=== PATIENT | female | born 1980 | race Caucasian/White ===

== ENCOUNTER 2018-03-17 09:56 | Emergency (ER) | payer BC ==
[2018-03-17 11:47] VITALS: BP 184/102
--- NOTE | 2018-03-17 12:18 | ED ---
Throat Pain/Nasal Congestion - HPI Summary HPI Summary: pt presents to the ED for evaluation of her eye discharge. she states that she has been ill for a week with congestion, body aches and a slight sore throat. she states she is feeling better, however, she started to have discharge from her eyes over the past 1-2 days. she states she had to wipe her eyes twice last night due to the ocular discharge. She denies any pain or change in vision. - History of Current Complaint Chief Complaint: UCEye Hx Obtained From: Patient Onset/Duration: Lasting Days, Still Present Severity: Mild Associated Signs And Symptoms: Negative: Dysphagia, Wheezing, Sinus Discomfort, Nasal Discharge - Allergies/Home Medications Allergies/Adverse Reactions: Allergies Allergy/AdvReac Type Severity Reaction Status Date / Time Gaine detergent Allergy Intermediate Rash And Uncoded 03/19/16 12:33 Itching wool Allergy Intermediate Rash And Uncoded 03/19/16 12:33 Itching Home Medications: Home Medications Mv-Min/Vit C/Glut/Lysine/Hb124 [Airborne Effervescent Tablet] 1 each PO TID [History Confirmed 03/17/18] PMH/Surg Hx/FS Hx/Imm Hx Previously Healthy: Yes Endocrine/Hematology History: Denies: Hx Diabetes, Hx Thyroid Disease Cardiovascular History: Reports: Hx Hypertension Respiratory History: Denies: Hx Asthma, Hx Chronic Obstructive Pulmonary Disease (COPD) GI History: Denies: Hx Ulcer - Surgical History Surgery Procedure, Year, and Place: [facility] 2000. LASIX Infectious Disease History: No Infectious Disease History: Denies: Hx Clostridium Difficile, Hx Hepatitis, Hx Human Immunodeficiency Virus (HIV), Hx of Known/Suspected MRSA, Hx Shingles, Hx Tuberculosis, Hx Known/ Suspected VRE, Hx Known/Suspected VRSA, History Other Infectious Disease, Traveled Outside the [place] in Last 30 Days - Family History Known Family History: Positive: Cardiac Disease - Social History Alcohol Use: None Substance Use Type: Reports: None Smoking Status (MU): Never Smoked Tobacco Review of Systems Constitutional: Negative Negative: Fever, Chills Positive: Drainage, Erythema. Negative: Photophobia, Blurred Vision Positive: Sore Throat - improved. Negative: Ear Ache, Nasal Discharge Negative: Palpitations, Chest Pain Respiratory: Negative Gastrointestinal: Negative Negative: dysuria, frequency, flank pain, hematuria Negative: Edema Negative: Rash, Bruising Negative: Headache, Weakness, Numbness, Syncope Negative: Anxious, Depressed All Other Systems Reviewed And Are Negative: No Physical Exam Triage Information Reviewed: Yes Vital Signs On Initial Exam: Initial Vitals Temp Pulse Resp BP Pulse Ox 98.5 F 93 24 184/102 98 03/17/18 11:45 03/17/18 11:45 03/17/18 11:45 03/17/18 11:45 03/17/18 11:45 Vital Signs Reviewed: Yes Appearance: Positive: Well-Appearing, No Pain Distress, Well-Nourished Skin: Positive: Warm, Dry Eyes: Positive: EOMI, JANETT, Conjunctiva Inflammed, Discharge - minimal to eye lashes Neck: Positive: Supple, Nontender Respiratory/Lung Sounds: Positive: Clear to Auscultation, Breath Sounds Present Cardiovascular: Positive: Normal, RRR Abdomen Description: Positive: Nontender, Soft Bowel Sounds: Positive: Present Musculoskeletal: Positive: Normal, Strength/ROM Intact Neurological: Positive: Normal, Sensory/Motor Intact, Alert, Oriented to Person Place, Time, CN Intact II-III Psychiatric: Positive: Normal AVPU Assessment: Alert Diagnostics - Vital Signs Vital Signs Temp Pulse Resp BP Pulse Ox 03/17/18 11:45 98.5 F 93 24 184/102 98 - Laboratory Lab Statement: Any lab studies that have been ordered have been reviewed, and results considered in the medical decision making process. EENT Course/Dx - Course Course Of Treatment: pt is having resolution of her uri symptoms. she is now having signs of conjunctivitis. will send a rx for erythromycin oph ointment. pt instructed on how to use in the . pt voiced understanding of discharge instructions. I did instruct her to f/u with her eye doctor if she has blurry vision or any changes in her vision. - Diagnoses Provider Diagnoses: Conjunctivitis Discharge - Sign-Out/Discharge Documenting (check all that apply): Patient Departure All imaging exams completed and their final reports reviewed: No Studies - Discharge Plan Condition: Stable Disposition: HOME Prescriptions: Erythromycin TOPICAL GEL* [Erythromycin OPTH OINT*] 1 applic TOPICAL TID 5 Days #1 oint Patient Education Materials: Conjunctivitis (ED) Referrals: Ada Beach [Primary Care Provider] - Additional Instructions: use the eye ointment as instructed. I sent your prescription to the pharmacy on file. return if worse or any new symptoms. Follow up with your doctor next week. - Billing Disposition and Condition Condition: STABLE Disposition: Home
== END 2018-03-17 12:28 | disposition home or self-care (01) ==
LOC: UCCORT 09:56
DX: H10.9 Unspecified conjunctivitis (principal)
CPT/HCPCS: 99212; G0463

== ENCOUNTER 2018-03-22 10:38 | Emergency (ER) | payer BC ==
[2018-03-22 13:39] VITALS: BP 174/99
--- NOTE | 2018-03-22 13:56 | UC ---
Ear Complaint HPI - History of Current Complaint Chief Complaint: UCEar Stated Complaint: BILATERAL EAR Time Seen by Provider: 03/22/18 13:35 Hx Obtained From: Patient Hx Last Menstrual Period: 02/22/18 Pain Intensity: 6 - Allergies/Home Medications Allergies/Adverse Reactions: Allergies Allergy/AdvReac Type Severity Reaction Status Date / Time Gaine detergent Allergy Intermediate Rash And Uncoded 03/22/18 13:35 Itching wool Allergy Intermediate Rash And Uncoded 03/22/18 13:35 Itching PMH/Surg Hx/FS Hx/Imm Hx - Surgical History Surgical History: Yes Surgery Procedure, Year, and Place: [facility] 2000. LASIX - Family History Known Family History: Positive: Cardiac Disease - Social History Alcohol Use: None Substance Use Type: None Smoking Status (MU): Never Smoked Tobacco Physical Exam Vital Signs: Initial Vital Signs Temp 97.8 F 03/22/18 13:36 Pulse 78 03/22/18 13:36 Resp 19 03/22/18 13:36 BP 174/99 03/22/18 13:36 Pulse Ox 100 03/22/18 13:36 Ear Complaint Course/Dx - Course Course Of Treatment: normal exam, likely viral URI, conservative treatment including antihistamines - Differential Dx/Diagnosis Provider Diagnosis: Viral URI with cough Discharge - Sign-Out/Discharge Documenting (check all that apply): Patient Departure All imaging exams completed and their final reports reviewed: No Studies - Discharge Plan Condition: Good Disposition: HOME Patient Education Materials: Viral Syndrome (ED) Referrals: Ada Beach [Primary Care Provider] - Additional Instructions: - Increase fluid intake - Go to ER with fever > 101, headache not resolved by motrin/ tylenol, stiff neck - humidifier for cough at night - Antihistamines to help with pressure/ nasal/ ear symptoms - MOtrin as needed for pain - Billing Disposition and Condition Condition: GOOD Disposition: Home
== END 2018-03-22 14:10 | disposition home or self-care (01) ==
LOC: UCCORT 10:38
DX: J06.9 Acute upper respiratory infection, unspecified (principal); R05 Cough
CPT/HCPCS: 99211; G0463